=== PATIENT | female | born 1970 | race Asian ===

== ENCOUNTER 2020-12-24 13:55 | Outpatient (CLI) | payer OTHER | END 2020-12-24 14:09 | disposition home or self-care (01) | LOC: SONOGRAMA 13:55 → MAMO-SONO 14:15 | PROVIDERS: ATTEND Specialist | DX: D17.0 Benign lipomatous neoplasm of skin and subcutaneous tissue of head, face and neck (principal) ==

== ENCOUNTER 2021-01-22 05:00 | Day surgery (SDC) | payer OTHER | END 2021-01-22 10:42 | disposition home or self-care (01) | LOC: CIR.AMB 05:00 | PROVIDERS: ATTEND Specialist | DX: D17.0 Benign lipomatous neoplasm of skin and subcutaneous tissue of head, face and neck (principal); Z20.822 Contact with and (suspected) exposure to COVID-19 ==